=== PATIENT | female | born 2000 | race African-American/Black ===

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

== ENCOUNTER 2022-12-17 15:19 | Emergency (ER) | payer MEDICAID ==
[~2022-12-17] VITALS: Ht 165.1 cm; Wt 83.0 kg
[2022-12-17 15:19] VITALS: BP 100/69; PULSE 68; RESP 16; TEMP 98.1; O2SAT 98
[2022-12-17] MEDS ORDERED: ONDANSETRON ODT 4 MG TAB PO ONE (17:00)
[2022-12-17] MEDS ORDERED: KETOROLAC TROMETH 60MG/2ML VIAL IM ONE (17:00)
[2022-12-17] MEDS ORDERED: SUMA50TA2 PO (17:46)
[2022-12-17] MEDS ORDERED: BACDST PO (17:46)
[2022-12-17] MEDS ORDERED: ZOFR4T PO (17:46)
== END 2022-12-17 17:55 | disposition home or self-care (01) ==
LOC: ER 15:19
DX: G43.909 Migraine, unspecified, not intractable, without status migrainosus (principal); N39.0 Urinary tract infection, site not specified; J45.909 Unspecified asthma, uncomplicated
CPT/HCPCS: 70450; 81002; 96372; 99285; J1885; Q0162